=== PATIENT | male | born 1990 | race African-American/Black ===

== ENCOUNTER 2023-10-21 14:44 | Emergency (ER) | payer OTHER ==
[2023-10-21] MEDS ORDERED: LIDOCAINE 1% MPF 5 ML VIAL ONE (15:38)
[2023-10-21] MEDS ORDERED: CEFTRIAXONE 500 MG/VIAL ONE (15:39)
[2023-10-21] MEDS ORDERED: AZITHROMYCIN 250 MG TAB ONE (15:40)
[2023-10-21 16:31] LABS: Specific Gravity 1.024 (1.005-1.030); Sqamous Epithelial <5 /HPF (None Seen); Urine Bacteria <20 /HPF (<20); Urine Bilirubin NEGATIVE (Negative); Urine Blood Negative (Negative); Urine Clarity Clear (Clear); Urine Color Light-Yellow (Yellow); Urine Culture Reflex Order REFLEXED; Urine Glucose NEGATIVE (Negative); Urine Ketones NEGATIVE (Negative); Urine Micro Reflex YN NO BILL MICROSCOPIC; Urine Mucus Slight /HPF (None Seen); Urine Nitrite NEGATIVE (Negative); Urine Protein NEGATIVE (Negative); Urine RBC <5 /HPF (None Seen); Urine Urobilinogen Normal (Normal); Urine WBC Clump Rare /HPF (None Seen); Urine Yeast (Budding) Trace /HPF (None Seen); Urine pH 6.5 (5.0-7.0)
--- NOTE | 2023-10-21 16:47 | ER ---
Nurse's Notes [facility] Name: Murray De La Cruz Age: 33 yrs Sex: Male : 1990 Arrival Date: 10/21/2023 Time: 14:44 Bed 10 Private MD: Diagnosis: Unspecified sexually transmitted disease-suspected Presentation: 10/20 14:53 Chief complaint: Patient states: woke up and went to use the bathroom and the tip of my iw penis was stinging and it philippe when I pee, it's rubbing on the tip , there is some discharge. Coronavirus screen: At this time, the client does not indicate any symptoms associated with coronavirus-19. Ebola Screen: Patient negative for fever greater than or equal to 101.5 degrees Fahrenheit, and additional compatible Ebola Virus Disease symptoms Patient denies exposure to infectious person. Patient denies travel to an Ebola-affected area in the 21 days before illness onset. No symptoms or risks identified at this time. Initial Sepsis Screen: Does the patient meet any 2 criteria? No. Patient's initial sepsis screen is negative. Does the patient have a suspected source of infection?. Risk Assessment: Do you want to hurt yourself or someone else? Patient reports no desire to harm self or others. Onset of symptoms was October 21, 2023. 14:53 Method Of Arrival: Ambulatory iw 14:53 Acuity: [place] 4 iw Historical: - Allergies: 14:55 No Known Allergies; iw - Home Meds: 14:55 amlodipine oral [Active]; iw - PMHx: 14:55 Hypertensive disorder; iw - PSHx: 14:55 None; iw - Immunization history:: Adult Immunizations up to date. - Infectious Disease History:: Denies. - Social history:: Smoking status: Patient/guardian denies using tobacco, the patient reports quitting approximately 1 years ago. Screenin:42 [facility] ED Fall Risk Assessment (Adult) History of falling in the last 3 months, tl4 including since admission No falls in past 3 months (0 pts) Confusion or Disorientation No (0 pts) Intoxicated or Sedated No (0 pts) Impaired Gait No (0 pts) Mobility Assist Device Used No (0 pt) Altered Elimination No (0 pt) Score/Fall Risk Level 0 - 2 = Low Risk Oriented to surroundings, Maintained a safe environment, Educated pt \T\ family on fall prevention, incl call for assistance when getting out of bed, Assessed \T\ reinforced patient's understanding of fall precautions. Abuse screen: Denies threats or abuse. Denies injuries from another. Nutritional screening: No deficits noted. Tuberculosis screening: No symptoms or risk factors identified. Assessment: 15:30 General: Appears in no apparent distress. Behavior is calm, cooperative. Pain: Denies tl4 pain. Neuro: Level of Consciousness is awake, alert, obeys commands, Oriented to person, place, time, situation, Moves all extremities. Full function Gait is steady, Speech is normal. Cardiovascular: Capillary refill < 3 seconds Patient's skin is warm and dry. Respiratory: Airway is patent Respiratory effort is even, unlabored, Respiratory pattern is regular, symmetrical, Breath sounds are clear bilaterally. GI: No signs and/or symptoms were reported involving the gastrointestinal system. EENT: No signs and/or symptoms were reported regarding the EENT system. 16:51 : Reports discharge, from penis that is green, yellow. Derm: No signs and/or symptoms tl4 reported regarding the dermatologic system. Musculoskeletal: No signs and/or symptoms reported regarding the musculoskeletal system. 16:53 Reassessment: No changes from previously documented assessment. Patient and/or family tl4 updated on plan of care and expected duration. Pain level reassessed. Patient is alert, oriented x 3, equal unlabored respirations, skin warm/dry/pink. Patient denies pain at this time. Vital Signs: 14:53 BP 138 / 100; Pulse 80; Resp 16; Temp 97.1; Pulse Ox 98% on R/A; iw 14:56 Weight 89.36 kg; Height 5 ft. 11 in. ; iw 16:53 BP 118 / 74; Pulse 76; Resp 16; Temp 98.1(O); Pulse Ox 99% on R/A; Pain 0/10; tl4 14:56 Body Mass Index 27.48 (89.36 kg, 180.34 cm) iw 16:53 Pain Scale: Adult tl4 ED Course: 14:50 Patient arrived in ED. mg5 14:54 Gabi Villegas PA-C [facility]. sb4 14:54 Earnest Barclay MD is Attending Physician. sb4 14:55 Triage completed. iw 15:36 Migue Sommers RN is Primary Nurse. tl4 15:44 Patient has correct armband on for positive identification. Placed in gown. Bed in low tl4 position. Call light in reach. Side rails up X 1. Provided Education on: ED process. Client placed on continuous cardiac and pulse oximetry monitoring. NIBP monitoring applied. Door closed. Noise minimized. Lights dimmed. Moved to private room. Warm blanket given. 16:53 No provider procedures requiring assistance completed. Patient did not have IV access tl4 during this emergency room visit. 16:58 Arm band placed on right wrist. tl4 Administered Medications: 16:00 Drug: Rocephin (cefTRIAXone) IM 500 mg IM once {Note: mixed with 2.1 mL lidocaine 1%.} tl4 Route: IM; Site: left ventrogluteal; 16:54 Follow up: Response: No adverse reaction tl4 16:00 Drug: AZITHromycin PO 1 grams PO once Route: PO; tl4 16:54 Follow up: Response: No adverse reaction tl4 Medication: 16:52 VIS not applicable for this client. tl4 Outcome: 16:47 Discharge ordered by MD. sb4 17:00 Discharged to home ambulatory, tl4 17:00 Condition: stable 17:00 Discharge instructions given to patient, Instructed on discharge instructions, follow up and referral plans. Demonstrated understanding of instructions, follow-up care, 18:00 Patient left the ED. tl4 Signatures: Brittany Pollard RN RN iw Brown, Sophia, PA-C PAStarr sb4 Sandra Victoria mg5 Migue Sommers RN RN tl4 Corrections: (The following items were deleted from the chart) 16:51 15:30 EENT: No signs and/or symptoms were reported regarding the EENT system. tl4 tl4 16:51 15:30 Derm: Reports tl4 tl4
--- NOTE | 2023-10-21 16:47 | EDPHYS ---
Physician Documentation [facility] Name: Murray De La Cruz Age: 33 yrs Sex: Male : 1990 Arrival Date: 10/21/2023 Time: 14:44 Bed 10 Private MD: ED Physician Earnest Barclay HPI: 10/20 15:02 This 33 yrs old Black Male presents to ER via Ambulatory with complaints of penile sb4 discharge. 15:02 The patient presents with a possible STD exposure, symptoms include dysuria, green sb4 penile discharge, yellow penile discharge. Onset: The symptoms/episode began/occurred today. The patient has not experienced similar symptoms in the past. The patient has not recently seen a physician. Historical: - Allergies: 14:55 No Known Allergies; iw - Home Meds: 14:55 amlodipine oral [Active]; iw - PMHx: 14:55 Hypertensive disorder; iw - PSHx: 14:55 None; iw - Immunization history:: Adult Immunizations up to date. - Infectious Disease History:: Denies. - Social history:: Smoking status: Patient/guardian denies using tobacco, the patient reports quitting approximately 1 years ago. ROS: 15:02 Constitutional: Negative for fever, chills, and weight loss, sb4 15:02 : Positive for urinary symptoms, penile discharge, 15:02 All other systems are negative, Exam: 15:02 Constitutional: This is a well developed, well nourished patient who is awake, alert, sb4 and in no acute distress. Head/Face: Normocephalic, atraumatic. Eyes: Extra-ocular motions intact. Periorbital areas with no swelling, redness, or edema. ENT: Mucous membranes moist. Skin: Warm, dry with normal turgor. Normal color with no rashes, no lesions, and no evidence of cellulitis. MS/ Extremity: Pulses equal, no cyanosis. Neurovascular intact. Full, normal range of motion. 15:02 : Male external genitalia: normal, no abrasion, no erythema, no injury, no swelling, no tenderness, penile discharge, that is yellow, Sexual behavior: the patient is sexually active, possibly cheating, SERGIO Soto present for exam, Vital Signs: 14:53 BP 138 / 100; Pulse 80; Resp 16; Temp 97.1; Pulse Ox 98% on R/A; iw 14:56 Weight 89.36 kg; Height 5 ft. 11 in. ; iw 16:53 BP 118 / 74; Pulse 76; Resp 16; Temp 98.1(O); Pulse Ox 99% on R/A; Pain 0/10; tl4 14:56 Body Mass Index 27.48 (89.36 kg, 180.34 cm) iw 16:53 Pain Scale: Adult tl4 MDM: 14:56 Patient medically screened. sb4 15:02 Data reviewed: vital signs, nurses notes. sb4 10/20 14:56 Order name: UAM; Complete Time: 16:46 sb4 10/20 16:50 Order name: Urine Culture EDMS Administered Medications: 16:00 Drug: Rocephin (cefTRIAXone) IM 500 mg IM once {Note: mixed with 2.1 mL lidocaine 1%.} tl4 Route: IM; Site: left ventrogluteal; 16:54 Follow up: Response: No adverse reaction tl4 16:00 Drug: AZITHromycin PO 1 grams PO once Route: PO; tl4 16:54 Follow up: Response: No adverse reaction tl4 Disposition Summary: 10/21/23 16:47 Discharge Ordered Notes: Location: Home sb4 Problem: new sb4 Symptoms: are unchanged sb4 Condition: Stable sb4 Diagnosis - Unspecified sexually transmitted disease - suspected sb4 Followup: sb4 - With: Emergency Department - When: As needed - Reason: Trouble breathing, Worsening of condition Discharge Instructions: - Discharge Summary Sheet sb4 - Dysuria sb4 Forms: - Antibiotic Education sb4 - Patient Portal Instructions sb4 - Leadership Thank You Letter sb4 Signatures: Dispatcher [employer] Brittany Kirby, RN RN Gabi Villegas PA-C PAStarr sb4 Migue Sommers RN RN tl4
[2023-10-21 18:43] VITALS: BP 118/74; TEMP 98.1; O2SAT 99
== END 2023-10-21 18:00 | disposition home or self-care (01) ==
LOC: ER 14:44
DX: R36.9 Urethral discharge, unspecified (principal)
CPT/HCPCS: 87088; 81001; 87086; J2001; 96372; 99284